=== PATIENT | female | born 2005 | race Caucasian/White ===

== ENCOUNTER 2024-11-26 06:21 | Emergency (ER) | payer OTHER ==
[~2024-11-26] VITALS: Ht 157.5 cm; Wt 57.4 kg
[2024-11-26] MEDS ORDERED: ZOLO50TA PO (06:27)
[2024-11-26] MEDS ORDERED: OCEL3TAB PO (06:27)
[2024-11-26] MEDS: ONDANSETRON 4MG ORAL DISINTEGRATING TAB PO ONE (08:09)
[2024-11-26] MEDS ORDERED: ONDA-282 PO (09:35)
[2024-11-26 09:45] VITALS: BP 116/78; TEMP 97.6; O2SAT 99
== END 2024-11-26 09:55 | disposition home or self-care (01) ==
LOC: M ED 06:21
DX: R11.2 Nausea with vomiting, unspecified (principal); Z79.899 Other long term (current) drug therapy

== ENCOUNTER 2025-04-13 15:28 | Emergency (ER) | payer OTHER ==
[~2025-04-13] VITALS: Ht 157.5 cm; Wt 51.7 kg
[~2025-04-13 15:28] MED LIST: OCEL3TAB PO; ONDA-282 PO; ZOLO50TA PO
[2025-04-13 15:32] VITALS: BP 119/83; TEMP 98.5; O2SAT 99
[2025-04-13 16:14] LABS: PLATELET COUNT, AUTOMATED 197 10^3/uL (150-450)
[2025-04-13 16:33] LABS: ETHYL ALCOHOL (ETHANOL) < 0.003 % (0.000-0.010)
[2025-04-13 16:35] LABS: ALT/SGPT 15 U/L (7.0-40); AST/SGOT 24 U/L (<34); CALCIUM LEVEL 9.1 MG/DL (8.5-10.1); CARBON DIOXIDE LEVEL 25 MMOL/L (20-31); CHLORIDE LEVEL 103 MMOL/L (98-107); CREATININE FOR GFR 0.83 MG/DL (0.55-1.30); GLOMERULAR FILTRATION RATE > 90.0 (>60); POTASSIUM SERUM 4.0 MMOL/L (3.5-5.1); SALICYLATE LEVEL < 3.0 MG/DL (<30); SODIUM LEVEL 140 MMOL/L (136-145)
[2025-04-13 16:39] LABS: HCG, SERUM QUALITATIVE NEGATIVE (NEGATIVE)
[2025-04-13] MEDS ORDERED: SERT25TA21 PO (16:39)
[2025-04-13] MEDS ORDERED: HOME MED LIST COMPLETE! XX SCH (16:40)
== END 2025-04-13 17:30 | disposition home or self-care (01) ==
LOC: M ED 15:28
DX: F32.A Depression, unspecified (principal); Z79.899 Other long term (current) drug therapy

== ENCOUNTER 2025-05-06 15:09 | Emergency (ER) | payer OTHER ==
[~2025-05-06] VITALS: Ht 157.5 cm; Wt 51.9 kg
[~2025-05-06 15:09] MED LIST changes: +SERT25TA21 PO
[2025-05-06 16:46] LABS: KETONE, URINE AUTO RFX NEGATIVE (NEGATIVE); LEUKOCYTE ESTERASE UR AUTO RFX NEGATIVE (NEGATIVE); MUCUS, URINE RFX SMALL (NEGATIVE); NITRITE, URINE AUTO RFX NEGATIVE (NEGATIVE); RBC, URINE AUTO RFX 0 /HPF (0-3); SQUAM EPITHELIAL CELL UR AURFX 3 /HPF (0-6); WBC, URINE AUTO RFX 2 /HPF (0-3)
[2025-05-06 17:42] LABS: Trichomonas vaginalis (AMP) NOT DETECTED (NEGATIVE)
[2025-05-06 18:06] LABS: GC DNA AMPLIFICATION NEGATIVE (NEGATIVE)
[2025-05-06] MEDS ORDERED: METR-265 PO (20:32)
[2025-05-06 20:48] VITALS: BP 109/73; TEMP 98; O2SAT 96
== END 2025-05-06 20:50 | disposition home or self-care (01) ==
LOC: M ED 15:09
DX: R10.2 Pelvic and perineal pain (principal); Z79.899 Other long term (current) drug therapy

== ENCOUNTER 2025-07-08 06:45 | Emergency (ER) | payer OTHER ==
[~2025-07-08] VITALS: Ht 157.5 cm; Wt 49.5 kg
[~2025-07-08 06:45] MED LIST changes: +METR-265 PO
[2025-07-08] MEDS ORDERED: OCEL3TAB PO (09:32)
[2025-07-08] MEDS ORDERED: HOME MED LIST COMPLETE! XX SCH (09:35)
[2025-07-08 10:19] VITALS: BP 112/58; TEMP 98.8; O2SAT 99
== END 2025-07-08 10:21 | disposition home or self-care (01) ==
LOC: M ED 06:45
DX: R07.89 Other chest pain (principal); I45.10 Unspecified right bundle-branch block; Z79.899 Other long term (current) drug therapy

== ENCOUNTER → 2025-07-12 | Outpatient (CLI) | payer OTHER ==
[~2025-07-12] MED LIST changes: +ISOVUE-300 61% 100 ML VIAL As Ordered ONE; +LIDOCAINE 1% MDV 20 ML VIAL As Ordered ONE; +TRIAMCINOLONE ACETONIDE SUSP 40MG/ML 1ML VIAL As Ordered ONE
== END ==
LOC: M RAD 14:38
PROVIDERS: ATTEND Physician Assistant Surgical
DX: S73.121A Ischiocapsular ligament sprain of right hip, initial encounter (principal); X58.XXXA Exposure to other specified factors, initial encounter; Y92.9 Unspecified place or not applicable
CPT/HCPCS: 20610; 77002; J3301; Q9967